=== PATIENT | female | born 1935 | race Caucasian/White ===

== ENCOUNTER → 2016-09-27 | Outpatient (CLI) | payer OTHER ==
[~2016-09-27] VITALS: Ht 152.4 cm; Wt 53.1 kg
[~2016-09-27] MED LIST: CO Q-10100 MG PO; COREG6.25 MG PO; FISH OIL 1,001000 M2 PO; GABAPENTIN 100100 MG PO; LIDODERM 5%1 PATC1 TRANSDERM; LIPITOR 20 MG T20 M1 PO; LUTEIN20 MG PO; MULTI VITAMIN1 EACH PO; NORTRIPTYLINE H10 M1 GT; OMEPRAZOLE20 M2 PO; TUMS PO; [UNRECOGNIZED DRUG - OTHER] TP
--- NOTE | ~2016-09-27 | HPC ---
[facility] [place] [address] PAIN MANAGEMENT CONSULTATION Name: DINESH SAINZ Room #: REG [facility].#: [id number] Admission: 09/27/16 Attend Phys: Rick Fernandez MD Discharge: Date of : 37 Report #: [id number] THIS REPORT FOR: //name// CC: Damián Fernandez DATE OF SERVICE: 09/27/2016 DATE OF REGISTRATION: 09/27/2016. CHIEF COMPLAINT: Postherpetic neuralgia. REASON FOR ENCOUNTER: I am seeing the patient today at the request of Dr. Stewart. She is a jennifer 81-year-old who developed shingles outbreak on 08/15/2015. She had very aggressive vesicular rash which ultimately resolved, but she has been left with characteristic pain of postherpetic neuralgia. She describes this as an intermittent jolt as well as some itching. The pain radiates in the dermatome of T5, T6, T7 on the left and is overlying all of her scar area. She has tried injections with Dr. Bandar Lopez. Two epidural steroid injections were unhelpful. She tried acupuncture which was also not helpful. For now, she has been taking gabapentin 100 mg 4 times a day and using lidocaine cream 5%, which helps, although she feels that she may be developing some tolerance to its effects as well. MEDICATIONS: In addition to the lidocaine cream and gabapentin, are carvedilol, atorvastatin, omeprazole, lutein, CoQ10, fish oil, multivitamins, calcium. ALLERGIES: None. PAST MEDICAL HISTORY: Quite remarkable. She was found to have coronary artery disease as well as aortic valve disease and Dr. Alatorre at [facility] performed a coronary artery bypass graft x 4, AVR, and resection of an aortic aneurysm in 2015. She was at the recovering when she developed C. difficile. She was sent to the hospital. This rapidly progressed into sepsis, and she was hospitalized in [facility] in the ICU for over 1 month. She was dialyzed, was on a ventilator. She has a tracheostomy scar. She obviously is a very resilient woman and recovered from this long ICU stay. Unfortunately, a few months after recovery, she developed shingles and has been miserable with it ever since. The patient is under treatment for hypertension and osteoarthritis. SOCIAL HISTORY: She denies use of tobacco, does drink some alcohol perhaps 1 or 2 drinks per day in a social setting. She is here today [place] [address] PAIN MANAGEMENT CONSULTATION Name: DINESH SAINZ Room #: REG [facility].#: [id number] Admission: 09/27/16 Attend Phys: Rick Fernandez MD Discharge: Date of : 37 Report #: [id number] REVIEW OF SYSTEMS: Completed by the patient, describes shortness of breath, ringing in her ears, cataracts, blurred vision and a history of anxiety. PHYSICAL EXAMINATION: GENERAL: She is a pleasant 81-year-old. She is a little bit anxious today. She speaks with sort of a shallow, hesitant voice. VITAL SIGNS: Her blood pressure is 149/87, heart rate 73, respirations 14. She is 5 feet tall and 152 pounds with a BMI of 22.9. CHEST: Clear. CARDIAC: Rhythm was irregular. There was a slight systolic murmur. Multiple prematurities were heard over the course of 30 seconds. SKIN: Examination of the chest wall reveals evidence of scarring consistent with shingles. It follows at T5-T7 distribution on the left. NEUROLOGIC: There is light touch allodynia and discomfort with palpation. IMPRESSION: Postherpetic neuralgia, now over 1 year. Pain follows at T5 through T8 distribution. RECOMMENDATIONS: 1. There has been good evidence that the use of a tricyclic antidepressant at small dose can be helpful even in patients who are 81 years of age. There are precautions on using these medications. We discussed that at some length today. I started at the lowest possible dose of nortriptyline 10 mg p.o. at bedtime, and she should stay on it if able for at least 3-4 weeks to determine if it is effective. Side effects of dry mouth, tachycardiac, urinary hesitancy were discussed. Dizziness is another important symptom in the elderly, and she must be very cautious if she feels unsteady on her feet. 2. She has not used Lidoderm patches during this phase of treatment. I have renewed those for her. 3. Consider repeating neuraxial injections, epidural or selective nerve root blocks may be of benefit. Since she failed injection with Dr. Lopez, more reluctant to proceed today with further injection treatments, but if they are interested in trying them again, we could certainly repeat them with making efforts to make sure that we adequately cover the T5 through T8 dermatomes on the left. 4. Consideration of thoracic nerve root blocks performed externally is also an intervention that might be of benefit for this patient if she does not do well with the prescribed drug therapy. 5. Followup visit is planned in 1 month. By: 1609 00 Rick Fernandez MD /nt
[2016-09-27 10:38] VITALS: BP 149/87
== END | disposition home or self-care (01) ==
LOC: PAIN 07:17
DX: B02.29 Other postherpetic nervous system involvement (principal); I10 Essential (primary) hypertension; I06.9 Rheumatic aortic valve disease, unspecified; I25.10 Atherosclerotic heart disease of native coronary artery without angina pectoris; M19.90 Unspecified osteoarthritis, unspecified site; F41.8 Other specified anxiety disorders; Z95.1 Presence of aortocoronary bypass graft; Z79.899 Other long term (current) drug therapy; Z98.890 Other specified postprocedural states

== ENCOUNTER → 2016-10-25 | Outpatient (CLI) | payer OTHER ==
[~2016-10-25] VITALS: Ht 149.9 cm; Wt 53.3 kg
--- NOTE | ~2016-10-25 | HPC ---
[facility] [address] [place] [address] PAIN MANAGEMENT CONSULTATION Name: DINESH SAINZ Room #: REG [facility] Phillip#: [id number] Admission: 10/25/16 Attend Phys: Rick Fernandez MD Discharge: Date of : 37 Report #: [id number] THIS REPORT FOR: //name// CC: Damián Fernandez DATE OF SERVICE: 10/25/2016 REASON FOR VISIT: Follow up for postherpetic neuralgia. HISTORY OF PRESENT ILLNESS: The patient returns to pain clinic today and would like me to give her an epidural injection. She repeats over and over again that her pain is not really a classic pain, it is more of an itch, but it is clearly dysesthetic. It bothers her all day long and interferences with her activities. She took a magic marker and drill line delineating the area of dysesthetic itching and it follows a classic left dermatomal distribution roughly T6-T7. She states that it makes her nervous and anxious. I had given her nortriptyline with some very precise instructions on how to take it. She sounds like she forgot most of it, so I angélica her graph of how we wanted to titrate the medication gradually. She stopped that after 2 days because nothing had happened. The medication was ordered at 10 mg to take for 1 week and at the end of that week, she would increase the dose to two capsules. At the end of the third week, she could increase to three capsules if she was no better. There are good studies showing the benefits of tricyclic antidepressants and the treatment of postherpetic neuralgia for pain. 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 MEDICATIONS: Reviewed and reconciled. She has Lidoderm patch, which is also not using. PHYSICAL EXAMINATION: GENERAL: She is a jennifer 81-year-old pleasant, but anxious. VITAL SIGNS: Blood pressure 165/84, heart rate 52 and BMI is 23.7. CHEST: Clear. CARDIAC: Rhythm was regular. EXTREMITIES: She has some mild allodynia along the T6-T7 distribution on the left. IMPRESSION: Postherpetic neuralgia following the left T6-T7 distribution today. RECOMMENDATIONS: 1. Reviewed instructions for tricyclic antidepressant. 2. Epidural steroid injection, left paramedian, T6-T7. [address] [address] PAIN MANAGEMENT CONSULTATION Name: DINESH SAINZ Tari Room #: REG [facility] Marjan#: [id number] Admission: 10/25/16 Attend Phys: Rick Fernandez MD Discharge: Date of : 37 Report #: [id number] PROCEDURE: She was taken to the fluoroscopic suite for procedure, placed prone, skin prepped with ChloraPrep. Skin anesthetized the left of midline. A 20-gauge Tuohy epidural needle was advanced paramedian into the epidural space when the first attempt with loss of resistance and no blood or CSF aspirated. Excellent epidurogram was achieved and the left-sided spread noted. This was then followed by 2 mL of 0.5% lidocaine mixed with 60 mg of triamcinolone. She tolerated the procedure very well, was observed for a short time and pain was reduced. Her discomfort was reduced at the discharge. We will follow up in a month. By: 1600 [id number] Rick Fernandez MD /nt
[2016-10-25 13:06] VITALS: BP 165/84
== END | disposition home or self-care (01) ==
LOC: PAIN 07:25
DX: B02.29 Other postherpetic nervous system involvement (principal); Z87.891 Personal history of nicotine dependence

== ENCOUNTER → 2016-11-15 | Outpatient (CLI) | payer OTHER ==
[~2016-11-15] VITALS: Ht 149.9 cm; Wt 53.1 kg
--- NOTE | ~2016-11-15 | HPC ---
[facility] [place] [address] PAIN MANAGEMENT CONSULTATION Name: DINESH SAINZ Room #: REG [facility] Phillip#: [id number] Admission: 11/15/16 Attend Phys: Rick Fernandez MD Discharge: Date of : 37 Report #: [id number] THIS REPORT FOR: //name// CC: Damián Fernandez DATE OF SERVICE: 11/15/2016 REASON FOR VISIT: Follow up visit for postherpetic neuralgia. HISTORY OF PRESENT ILLNESS: The patient returns to Pain Clinic today and has done much better. She has taken her antidepressants as ordered and I gave her an epidural steroid injection. Injection provided at T6-T7 was effective almost immediately. She then followed my instructions carefully with nortriptyline, increasing it gradually from 10 to 20 to 30. She did well with the first 2 doses and at the third dose, she felt dizzy and lightheaded. She is now back down to 10 mg. She is doing fine with that dose. She has minimal discomfort today, which she describes as an aching, not so much is the pain. PHYSICAL EXAMINATION: GENERAL: The patient is pleasant, alert and oriented. VITAL SIGNS: Blood pressure 158/88, heart rate 70 and BMI is 23.6. MUSCULOSKELETAL: She has minimal discomfort, allodynia or hyperalgesia along the distribution of the T6-T7 on the left where she previously had shingles discomfort. IMPRESSION: Postherpetic neuralgia, T6-T7 on the left. PLAN: 1. Continued on nortriptyline for 1-2 months and then discontinue. 2. She can begin titrating off of gabapentin now and see how she does without it. We will try and minimize her use of medication at the age of 81. Both these medications have potential side effects with dizziness and lightheadedness. 3. Return to the Pain Clinic if pain returns. I will consider another epidural injection given her good response in the past. By: [id number] Rick Fernandez MD /nt
[2016-11-15 13:47] VITALS: BP 158/88
== END ==
LOC: PAIN 07:35
DX: B02.29 Other postherpetic nervous system involvement (principal); I10 Essential (primary) hypertension; Z79.899 Other long term (current) drug therapy; Z87.891 Personal history of nicotine dependence

== ENCOUNTER → 2017-06-27 | Outpatient (CLI) | payer OTHER ==
[~2017-06-27] VITALS: Ht 149.9 cm; Wt 53.6 kg
[~2017-06-27] MED LIST changes: +ALEVE220 MG PO; +NEURONTIN 300300 M1 PO; +VALIUM5 MG PO
--- NOTE | ~2017-06-27 | HPC ---
[facility] [place] [address] PAIN MANAGEMENT CONSULTATION Name: DINESH SAINZ Room #: REG [facility] Marjan#: [id number] Admission: 06/27/17 Attend Phys: Rick Fernandez MD Discharge: Date of : 37 Report #: [id number] THIS REPORT FOR: //name// CC: Damián Fernandez DATE OF SERVICE: 06/27/2017 Followup visit for thoracic radiculopathy with itching and dysesthesia in the distribution of shingles, left T5-T6. The patient returns to the pain clinic today, continuing to complain of pain in the left chest wall and itching. Her primary descriptor is itching, not so much pain, but it is an irritation associated with touching, allodynic like discomfort from clothing and it is also exacerbated by heat. She has trouble sleeping at night. She was given nortriptyline at a very low dose, 10 mg, which really helped a lot with her sleep. Dr. Stewart took her off of it due to dizziness, although she continues on gabapentin taking it 100 mg 3 times daily. Her dizziness is essentially unchanged. I gave her an injection in October that provided several weeks of good pain relief. She would like to try that again today. It was a thoracic epidural injection provided at T6. MEDICATIONS: Naproxen sodium, multivitamins, CoQ10, Lutein, omeprazole, gabapentin atorvastatin and carvedilol. ALLERGIES: None. PAST MEDICAL HISTORY: Significant for a long stay in the Intensive Care Unit following a C. difficile infection, which resulted in sepsis and catastrophe. She recovered fully except for the shingles. She had an open heart surgery with aortic valve replacement and bypass x 4. This is in 2014. She has not fallen and does not appear to be a fall risk. She is on no blood thinners. PHYSICAL EXAMINATION: VITAL SIGNS: Blood pressure 146/85, heart rate 65, respirations 14 and her BMI is 23. BACK: Examination of the back reveals allodynia, white diffuse dermatomal distribution scarring in T6. She describes the sensation as itching. ABDOMEN: Soft. She ambulates without difficulty. [facility] [address] [place] [address] PAIN MANAGEMENT CONSULTATION Name: DINESH SAINZ Room #: REG [facility]#: [id number] Admission: 06/27/17 Attend Phys: Rick Fernandez MD Discharge: Date of : 37 Report #: [id number] IMPRESSION: Thoracic radiculopathy with itching and dysesthesia in the T6 distribution post-herpetic neuralgia. PROCEDURE: Thoracic epidural injection. DESCRIPTION OF PROCEDURE: She was taken to the fluoroscopic suite. We carefully identified the T5-T6 interspace. Using the paramedian approach, I advanced the 22 gauge into the epidural space with loss of resistance. There was no blood or CSF aspirated. 1 mL of Omnipaque was injected demonstrating an epidural spread. This was bilateral. It was followed by 2 mL of 1% lidocaine and 40 mg of triamcinolone. The needle was removed. She was taken to the recovery room and given a prescription for gabapentin 300 mg to take at bedtime only. I do not want her to take it during the day because of dizziness. Hopefully, the higher dose of gabapentin will allow for sleep. She has reported that she feels weaker during the day due to the fact that she is no longer sleeping off of nortriptyline. Followup visit is planned in 2-3 months and may repeat the injection at that time. By: [id number] Rick Fernandez MD /nt
[2017-06-27 12:58] VITALS: BP 146/85
== END | disposition home or self-care (01) ==
LOC: PAIN 07:11
DX: M54.14 Radiculopathy, thoracic region (principal); G89.29 Other chronic pain; Z79.899 Other long term (current) drug therapy; Z98.890 Other specified postprocedural states; Z95.1 Presence of aortocoronary bypass graft; Z95.2 Presence of prosthetic heart valve